=== PATIENT | male | born 2000 | race African-American/Black ===

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

== ENCOUNTER 2024-04-18 03:34 | Emergency (ER) | payer MEDICAID ==
[~2024-04-18] VITALS: Ht 170.2 cm; Wt 160.0 kg
[2024-04-18 04:42] LABS: Urine Bacteria None Seen /hpf (None Seen)
[2024-04-18 05:02] LABS: Urine Blood Negative /uL (Negative); Urine Clarity Clear (Clear); Urine Color Yellow (Yellow); Urine Mucus FEW (None Seen); Urine Protein, UAD TRACE (Negative); Urine Specific Gravity 1.028 (1.001-1.035); Urine Urobilinogen Normal (Negative); Urine WBC 9 /hpf (0 - 3); Urine pH 7.5 (5.0-9.0)
[2024-04-18 05:05] LABS: Amphetamine Screen, Urine Neg (NEGATIVE); Barbiturate Scree,Urine Neg (NEGATIVE); Benzodiazephine Screen, Urine Neg (NEGATIVE); Cocaine Screen, Urine Neg (NEGATIVE); Opiate Scree,Urine Neg (NEGATIVE)
[2024-04-18 05:06] LABS: Cannabinoid Screen, Urine Pos (NEGATIVE); Phencyclidine Screen, Urine Neg (NEGATIVE)
[2024-04-18 06:54] LABS: Basophils # (auto) 0 10 ^3/uL (0-0.2); Basophils % (auto) 0.1 % (0.0-2.0); Eosinophils # (auto) 0 10 ^3/uL (0-0.8); Hematocrit 48.3 % (41.0-53.0); Hemoglobin 15.9 g/dL (13.5-17.5); Lymphocytes # (auto) 0.6 10 ^3/uL (0.4-5.4); Mean Corpuscular Hemoglobin 27.8 pg (28.0-32.0); Mean Corpuscular Volume 84.3 fL (80.0-100.0); Monocytes # (auto) 0.3 10 ^3/uL (0-1.3); Monocytes % (auto) 2.9 % (0.0-12.0); Neutrophils # (auto) 10.7 10 ^3/uL (1.6-8.6); Platelet Count (auto) 316 10^3/uL (140-450); Red Blood Cells 5.73 10^6/uL (4.5-5.90); Red Cell Distribution Width 16.1 % (11.8-14.3); White Blood Cell 11.7 10^3/uL (4.4-10.8)
[2024-04-18 07:05] LABS: Alanine Aminotransferase 28 U/L (7-40); Albumin 4.7 g/dL (3.2-4.8); Alkaline Phosphatase 81 U/L (46-116); Anion Gap 6 (5-15); Aspartate Aminotransferase 9 U/L (13-40); BUN/Creatinine Ratio 7.9 (10.0-20.0); Blood Urea Nitrogen 6 mg/dL (9-23); Calcium 9.7 mg/dL (8.7-10.4); Carbon Dioxide 25 mmol/L (20-30); Chloride 107 mmol/L (98-107); Glucose 124 mg/dL (74-106); Lipase 25 U/L (12-53); Sodium 138 mmol/L (136-145)
[2024-04-18 07:06] LABS: Bilirubin, Total 0.6 mg/dL (0.2-1.0); Total Protein 7.8 g/dL (5.7-8.2)
[2024-04-18] MEDS: PANTOPRAZOLE 40 MG TAB PO ONE (07:38)
[2024-04-18] MEDS: ONDANSETRON ODT 4 MG TAB PO ONE (07:38)
[2024-04-18] MEDS ORDERED: PANT40TA2 PO (07:41)
[2024-04-18] MEDS ORDERED: ZOFR4T PO (07:41)
[2024-04-18 10:12] VITALS: BP 116/70; PULSE 99; RESP 18; TEMP 98; O2SAT 99
== END 2024-04-18 10:13 | disposition home or self-care (01) ==
LOC: ER 03:40
DX: K52.9 Noninfective gastroenteritis and colitis, unspecified (principal); F12.188 Cannabis abuse with other cannabis-induced disorder; D72.829 Elevated white blood cell count, unspecified; Z79.899 Other long term (current) drug therapy
CPT/HCPCS: 36415; 74176; 80053; 80307; 81001; 83690; 85025; 99284; Q0162

== ENCOUNTER 2024-12-01 17:25 | Emergency (ER) | payer MEDICAID ==
[~2024-12-01 17:25] MED LIST: PANT40TA2 PO; ZOFR4T PO
[2024-12-01] MEDS: KETOROLAC TROMETH 30 MG/ML 1ML VIAL IV ONE (18:45)
[2024-12-01] MEDS: ONDANSETRON HCL 4 MG/2 ML VIAL IV ONE (18:45)
[2024-12-01] MEDS: SODIUM CHLORIDE 0.9% 1,000 ML IV ONE (18:49)
--- NOTE | 2024-12-01 18:49 | ED.PDOC ---
Eye-HPI HPI Comments 24-year-old male presents to the ED chief complaint flu-like symptoms times times 24 hours. REPORTS HEADACHE, FEVERS, CHILLS, NAUSEA, VOMITING. DENIES WORST HEADACHE OF HIS LIFE, CHEST PAIN, DIFFICULTY BREATHING, SHORTNESS OF BREATH, DIARRHEA, RECENT TRAVEL OR KNOWN ILL CONTACTS. Chief Complaint: Headache Time Seen by MD: 17:58 Primary Care Provider: NONE Reviewed Notes: Nurses Notes, Medications, Allergies Allergies: Coded Allergies: NO KNOWN ALLERGIES (Unverified , 10/03/18) Home Meds Active Scripts Pantoprazole Sodium Sesquihydr (Protonix) 40 Mg Tab, 40 MG PO DAILY, #30 TAB Prov:KEVIN ASNDOVAL MD 04/18/24 Ondansetron Odt 4MG Tab (ZOFRAN PO) 4 Mg Tb, 4 MG PO Q8HP PRN for 5 Days, #15 TAB ODT TAB-DISSOLVE IN MOUTH, THEN SWALLOW Prov:KEVIN SANDOVAL MD 04/18/24 Mode of Arrival: Ambulatory Past Medical History PAST MEDICAL HISTORY: Denies Surgical History: Denies all surgeries Family History Family History: Reviewed,noncontributory to illness, Family hx of Cancer Social History Smoker: Non-Smoker Alcohol: Denies ETOH Use Drugs: Marijuana Lives In: Home Constitutional: reports: chills, fatigue, fever; denies: diaphoresis, malaise, sweats, weakness, others EENTM: denies: blurred vision, double vision, ear bleeding, ear discharge, ear drainage, ear pain, ear ringing, eye pain, eye redness, hearing loss, mouth pain, mouth swelling, nasal discharge, nose bleeding, nose congestion, nose pain, photophobia, tearing, throat pain, throat swelling, voice changes, others Respiratory: denies: cough, hemoptysis, orthopnea, SOB at rest, shortness of breath, SOB with excertion, stridor, wheezing, others Cardiovascular: denies: chest pain, dizzy spells, diaphoresis, Dyspnea on exertion, edema, irregular heart beat, left arm pain, lightheadedness, palpitations, PND, syncope, others Gastrointestinal: reports: nausea, vomiting; denies: abdomen distended, abdominal pain, blood streaked bowels, constipated, diarrhea, dysphagia, difficulty swallowing, hematemesis, melena, poor appetite, poor fluid intake, rectal bleeding, rectal pain, others Genitourinary: denies: burning, dysuria, flank pain, frequency, hematuria, incontinence, penile discharge, penile sore, pain, testicle pain, testicle swelling, urgency, others Neurological: reports: headache; denies: dizziness, fainting, left sided numbness, left sided weakness, numbness, paresthesia, pre-existing deficit, right sided numbness, right sided weakness, seizure, speech problems, tingling, tremors, weakness, others Musculoskeletal: denies: back pain, gout, joint pain, joint swelling, muscle pain, muscle stiffness, neck pain, others Integumetry: denies: bruises, change in color, change in hair/nails, dryness, laceration, lesions, lumps, rash, wounds, others Allergic/Immunocompromised: denies: Difficulty Healing, Frequent Infections, Hives, Itching, others Hematologic/Lymphatic: denies: anemia, blood clots, easy bleeding, easy bruising, swollen glands, others Endocrine: denies: excessive hunger, excessive sweating, excessive thirst, excessive urination, flushing, intolerance to cold, intolerance to heat, unexplained weight gain, unexplained weight loss, others Psychiatric: denies: anxiety, bipolar disorder, depression, hopeless, panic disorder, schizophrenia, sleepless, suicidal, others Physical Exam General Appearance: No Apparent Distress, Normal HEENT: Normal ENT Inspection, Pharynx Normal, TMs Normal Neck: Full Range of Motion, Non-Tender, Normal, Normal Inspection Respiratory: Chest Non-Tender, Lungs Clear, No Accessory Muscle Use, No Respiratory Distress, Normal Breath Sounds Cardiovascular: No Edema, No JVD, No Murmur, No Gallop, Normal Peripheral Pulses, Regular Rate/Rhythm Breast Exam: Deferred Gastrointestinal: No Organomegaly, Non Tender, No Pulsatile Mass, Normal Bowel Sounds, Soft Genitalia: Deferred Pelvic: Deferred Rectal: Deferred Extremities: Normal capillary refill, Normal inspection, Normal range of motion, Non-tender, No pedal edema Musculoskeletal : Apperance: Normal Neurologic: Alert, loader machine II-XII nml as Tested, No Motor Deficits, Normal Affect, Normal Mood, No Sensory Deficits Cerebellar Function: Normal Reflexes: Normal Skin: Dry, Normal Color, Warm Lymphatic: No Adenopathy Was a procedure done? Was a procedure done?: No EENT DIFF Eye: N/A Ear: Otitis Media, Pharyngitis Sore Throat: Mononeucleosis X-Ray, Labs, Meds, VS Vital Signs Date Time Temp Pulse Resp B/P (MAP) Pulse Ox O2 Delivery O2 Flow Rate FiO2 12/01/24 19:35 98.2 118 22 124/76 (92) 94 98.2 12/01/24 18:44 102.9 129 18 127/88 (101) 94 102.9 12/01/24 18:44 129 18 94 Room Air 12/01/24 18:05 127 12/01/24 18:01 102.9 129 18 127/88 (101) 94 102.9 Lab Test 12/01/24 18:52 Range/Units Influenza Type A Antigen Positive Negative Influenza Type B Antigen Negative Negative SARS-CoV-2 Antigen (Rapid) Negative NEGATIVE Current Medications Medications (Trade) Dose Ordered Sig/Marce Route Start Time Stop Time Status Last Admin Sodium Chloride 1,000 ml @ 1,000 mls/hr Q1H ONCE IV 12/01/24 18:45 12/01/24 19:44 DC 12/01/24 18:49 X-Ray, Labs, Meds, VS Comment FLU SWAB A POSITIVE. PATIENT GIVEN BOLUS 1 L TORADOL 30 MG IV ALONG WITH ZOFRAN 4 MG IV PATIENT REPORTS IMPROVEMENT IN SYMPTOMS, PATIENT AFEBRILE AT THIS TIME PATIENT REQUESTING DISCHARGE AT THIS TIME. TRIAL TAMIFLU SCRIPT TO PHARMACY ON FILE. TAKE MEDICATIONS PRESCRIBED SIDE EFFECTS DISCUSSED. NEUK-OLV-BEEDZVM TYLENOL OR MOTRIN NEEDED FOR PAIN OR FEVER PER LABELED DOSING INSTRUCTIONS. FOLLOW UP WITH YOUR PCP 1-2 DAYS NECESSARY. REST INCREASE P.O. FLUIDS WITH ELECTROLYTES ER RETURN PRECAUTIONS GIVEN PATIENT INDICATES UNDERSTANDING AGREES WITH DISCHARGE PLAN OF CARE Time of 1ST Reevaluation: 18:49 Reevaluation 1ST: Unchanged Time of 2ND Reevaluation: 20:50 Reevaluation 2ND: Improved Patient Education/Counseling: Diagnosis, Treatment, Prognosis, Need For Follow Up Family Education/Counseling: Diagnosis, Treatment, Prognosis, Need For Follow Up Departure 1 Departure Time of Disposition: 20:50 Impression: Primary Impression: Influenza A Disposition: 01 HOME / SELF CARE / HOMELESS Condition: Stable e-Prescriptions Ibuprofen (Ibuprofen) 600 Mg Tab 600 MG PO Q6HP PRN for 3 Days, #12 TAB Prov: LUCAS DURANT 12/01/24 Oseltamivir Phosphate (Tamiflu) 75 Mg Cap 1 CAP PO BID for 5 Days, #10 CAP Prov: LUCAS DURANT 12/01/24 Discharged With: Relative (Mother) Critical Care Note Critical Care Time?: No Stability Stability form required: LUCAS Ledbetter Dec 01, 2024 18:49
[2024-12-01] MEDS: ACETAMINOPHEN 500 MG TAB or CAP PO ONE (19:34)
[2024-12-01 19:35] VITALS: BP 124/76; PULSE 118; RESP 22; TEMP 98.2; O2SAT 94
[2024-12-01 20:46] LABS: COVID19 ANTIGEN SOFIA FIA NEGATIVE (NEGATIVE)
[2024-12-01 20:48] LABS: Rapid Influenza A Positive (Negative); Rapid Influenza B Negative (Negative)
[2024-12-01] MEDS ORDERED: IBUP-1454 PO (20:52)
[2024-12-01] MEDS ORDERED: OSEL75CA5 PO (20:52)
--- NOTE | 2024-12-02 15:06 | ECG ---
[facility] Test Date: 2024-12-01 Test Time: 18:03:05 Pat Name: JANIE BOUDREAUX Department: ED Room: Gender: M Ct Scan Special Procedures Technologist: BEATRICE : 2000 Requested By: LUCAS DURANT Order Number: [id number] Reading MD: Young Crystal Measurements Intervals [place] Rate: 127 P: 58 MI: 170 QRS: 21 QRSD: 79 T: 31 QT: 278 QTc: 405 Interpretive Statements Sinus tachycardia Baseline wander in lead(s) V5 Electronically Signed On 12-07-2024 20:40:12 PDT by Young Crystal Please click the below link to view image of tracing.
== END 2024-12-01 21:34 | disposition home or self-care (01) ==
LOC: ER 17:25
DX: J10.1 Influenza due to other identified influenza virus with other respiratory manifestations (principal); F12.10 Cannabis abuse, uncomplicated; Z79.899 Other long term (current) drug therapy; Z20.822 Contact with and (suspected) exposure to COVID-19
CPT/HCPCS: 36415; 87426; 87804; 93005; 96360; 99284; J7030; J1885; J2405